=== PATIENT | female | born 1940 | race Caucasian/White ===

== ENCOUNTER 2017-03-30 10:58 | Outpatient (RCR) ==
--- NOTE | 2017-03-31 10:37 | RS.OPPTEV2 ---
Date of Note: 03/30/17 Visit #: 1 Date of Evaluation: 03/30/17 Payer Source: MEDICARE Date of Onset/Injury/Change in Status: 09/11/14 Surgery Performed?: No Treatment Diagnosis: Low Back pain History of Condition/Mechanism of Injury:: States she had back pain, but was also found to have a kidney stone. She was hospitalized the end of February and has been off of work since that time. Prior Level of Function.....Patient was independent with: ADL's, Self Care, Work /Vocation, Caregiving, Ambulation/Mobility, Community Integration/Access Current Subjective/complaints:: Patient reports she has not had pain in her back for the last 4-5 days. States she has not been working and will be off until the 15 of April. Reports no pain during the evaluation today. Medical History Medical History: Hypertension Smoking Status: Never smoker Hx Home Medications: does not have list with her. States she has not taken pain medication in 4-5 days. Pain Assessment - Pain Description Pain Location: Pain was in her low back Current Pain Intensity: 0/10 Worst Pain Intensity: 0/10 Functional Outcome Measure Oswestry LBP: 12 - G Codes & Severity Modifier G Codes & Modifier: Mobility current CI. Mobility goal CI. Mobility D/C CI Source of G Code score: Oswestry LBP scale - ROM Lumbar Flexion: Hand reach to patellae Sidebending to Left: Reach to Lateral Joint Line Sidebending to Right: Reach to Lateral Joint Line Comments: Reports no pain with lumbar or LE AROM. - Strength Comments: 5/5 throughout bilateral LE's. - Special Tests RASTA Test: Negative Left, Negative Right SLR Test: Negative Left, Negative Right Seated Dural Stretch Test: Negative Left, Negative Right SI Joint Compression: Negative SI Joint Distraction: Negative Palpation Comments:: Patient reports no tenderness throughout the lumbar spine, SI joints , or superior gluteal muscles. Demonstrates no significant increased muscle tone along the lumbar paraspinals. Sensation - Sensation Right Lower Extremity: Intact/Normal Left Lower Extremity: Intact/Normal Additional Comments: Additional Comments: Bilateral SLR to 35-40 degrees. Interventions - Exercise/Activities/Manual Therapy Exercises/Activities: Pt instructed in supine HS stretching for home. Manual Therapy: NA HOME EXERCISE PROGRAM: HS stretch - Charges Total Direct Minutes: 40 mins Total Treatment Time: 40 mins Procedures billed for this date of service:: [place] LOW Assessment Assessment: Patient presents to therapy with a diagnosis of chronic low back pain. She reports no pain or need for pain medication for the last 4-5 days. She had no pain during the evaluation today. Unable to reproduce pain with Special Tests. She does demonstrate tight hamstrings and she was given stretches to address this on her own. I informed her that we could keep her chart open until the end of the month, in case pain returned and she would need to come in for therapy. At this time, however, she demonstrates no need for therapy due to no pain or problems found during the evaluation. Plan - Treatment to be Provided Procedures: Patient Education Modalities: No Modalities - Treatment Plan Frequency: one time treatment Duration: One time treatment ORDER # VISITS AND/OR THROUGH DATE: 03/30/17 - Treatment Code (1) Low back pain Qualifiers: Chronicity: chronic Back pain laterality: unspecified Sciatica presence: unspecified whether sciatica present Qualified Description: Chronic low back pain, unspecified back pain laterality, with sciatica presence unspecified Qualifier Code(s): (M54.5) Low back pain, (G89.29) Other chronic pain
== END 2017-04-14 ==
PROVIDERS: ATTEND Family Medicine
DX: M54.5 Low back pain (principal); G89.29 Other chronic pain

== ENCOUNTER 2017-07-21 10:08 | Outpatient (CLI) ==
--- NOTE | 2017-07-21 11:31 | DI ---
Exam: Two x-rays of the chest. Comparison: None available. Reason for exam: Cough. FINDINGS: No pneumothorax or focal consolidation. There is patchy airspace opacities in the left l miguelina base. The cardiac silhouette is not enlarged. The imaged osseous structures appear grossly unr emarkable without acute fracture. Impression: Patchy airspace opacities in left lung base likely atelectasis or early pneumonia.
== END 2017-07-21 10:09 | disposition home or self-care (01) ==
LOC: RAD 10:08
PROVIDERS: ATTEND Family Medicine
DX: R05 Cough (principal)

== ENCOUNTER 2017-07-25 14:17 | Outpatient (CLI) ==
--- NOTE | 2017-07-25 14:47 | DI ---
EXAM: PA and lateral views of the chest HISTORY: Coughing and pneumonia COMPARISON: Chest Xray from 07/21/2017 FINDINGS: There is some improvement in airspace opacities in left lung base compared to before. Th ere is no lobar consolidation or failure or large effusion. Cardiac and mediastinal silhouettes are unremarkable. No acute osseous or soft tissue abnormalities. There has been prior cholecystectomy. IMPRESSION: Improving airspace densities in left base.
== END 2017-07-25 14:18 | disposition home or self-care (01) ==
LOC: LAB 14:17
PROVIDERS: ATTEND Family Medicine
DX: R05 Cough (principal)

== ENCOUNTER 2017-09-13 14:44 | Outpatient (CLI) ==
--- NOTE | 2017-09-13 15:30 | DI ---
EXAM: Chest two view, frontal and lateral views. HISTORY: Dyspnea. COMPARISON: 07/25/2017. FINDINGS: The heart size is normal. There is no pulmonary vascular congestion. The lungs are clear . No pleural effusion or pneumothorax is seen. No acute osseous abnormality identified. Clips seen in the upper abdomen. Since the prior study, there has been no significant interval change. IMPRESSION: No acute cardiopulmonary process.
== END 2017-09-13 14:45 | disposition home or self-care (01) ==
LOC: RAD 14:44
PROVIDERS: ATTEND Nurse Practitioner Family
DX: J98.8 Other specified respiratory disorders (principal); R06.00 Dyspnea, unspecified

== ENCOUNTER 2017-11-12 15:03 | Emergency (ER) ==
[2017-11-12 15:19] VITALS: BP 133/68; TEMP 97; BMI 29.9
[2017-11-12] MEDS ORDERED: PREDNISONE PO STA (15:31)
--- NOTE | 2017-11-12 16:21 | DI ---
EXAM: Chest two views HISTORY: Cough COMPARISON: 09/13/2017 TECHNIQUE: Two views of the chest were performed FINDINGS: The lungs are clear. There is no pleural effusion or pneumothorax. The heart is borderli ne enlarged in size. The mediastinal contour is normal, noting atherosclerosis. There are no acute abnormalities of the bones. IMPRESSION: No acute cardiopulmonary process.
--- NOTE | 2017-11-12 17:08 | ED.PDOC ---
General ED Provider: Dr. PUJA CHANDLER Chief Complaint: Respiratory Complaint Stated Complaint: cough, flu symptoms Time Seen by Physician: 15:10 (flu like symp) Mode of Arrival: Walk-In Information Source: Patient Exam Limitations: No limitations Primary Care Provider: JULEE AMIN Nursing and Triage Documentation Reviewed and Agree: Yes Reviewed sepsis parameters & appropriate labs ordered?: Yes System Inflammatory Response Syndrome: Not Applicable Sepsis Protocol: For patient's 13 years and over: Temp is 96.8 and below OR 101 and greater Pulse >90 BPM Resp >20/minute Acutely Altered Mental Status Are patient's symptoms suggestive of a new infection, such as: -Pneumonia -Skin, Soft Tissue -Endocarditis -UTI -Bone, Joint Infection -Implantable Device -Acute Abdominal Infection -Wound Infection -Meningitis -Blood Stream Catheter Infection -Unknown Respiratory Complaint Exam - Respiratory Complaint/Exam Onset/Duration: 3 days Symptoms Are: Still present Timing: Intermittent Initial Severity: Moderate Current Severity: Moderate Location: Throat, Chest Character: Reports: Non-productive cough Aggravating: Reports: None Alleviating: Reports: None Associated Signs and Symptoms: Reports: URI, Nasal congestion. Denies: Rapid breathing, Dyspnea, Fever, Chills, Chest pain, Pleuritic chest pain, Wheezing, Hemoptysis, Dizziness, Calf pain, Calf swelling, Edema, Hoarseness, Sinus discomfort, Vomiting, Sore throat, Weight loss, Decreased oral intake, Increased thirst, Increased appetite, Increased urination History of Healthcare-Acquired Pneumonia: No Related Surgical History: Reports: None Pulmonary Embolism Risk Factors: None Cardiac Risk Factors: Reports: None Pseudomonas Risk Factors: Reports: None Tuberculosis Risk Factors: Reports: None Status Asthmaticus Risk Factors: Reports: None Home Oxygen Use: No Recent Stress Test: No Recent Echo/LV Function: No Current Antibiotic Use: No Current Asthma Medication Use: No Inadequate Respiratory Effort: Yes Dysphagia Present: No Stridor Present: No JVD Present: No Accessory Muscle Use: No Retractions: Not Present Diminished Breath Sounds: No Sinus Tenderness: None Grunting Respirations: No Kussmaul Respirations: No Differential Diagnoses: Pneumonia, Bronchitis Review of Systems - Review Of Systems Constitutional: Reports: No symptoms Eyes: Reports: No symptoms Ears, Nose, Mouth, Throat: Reports: No symptoms Respiratory: Reports: Cough Cardiac: Reports: No symptoms GI: Reports: No symptoms : Reports: No symptoms Musculoskeletal: Reports: No symptoms Skin: Reports: No symptoms Neurological: Reports: No symptoms Endocrine: Reports: No symptoms Hematologic/Lymphatic: Reports: No symptoms All Other Systems: Reviewed and Negative Past Medical History - Past Medical History Previously Healthy: Yes Endocrine: Reports: None Cardiovascular: Reports: None Respiratory: Reports: None Hematological: Reports: None Gastrointestinal: Reports: None Genitourinary: Reports: None Neuro/Psych: Reports: None Musculoskeletal: Reports: None Cancer: Reports: None Last Menstrual Period: unknown - Surgical History General Surgical History: Reports: None - Family History Family History: Reports: None - Social History Smoking Status: Never smoker Hx Substance Use: No Alcohol Screening: None Physical Exam - Physical Exam Appearance: Ill-appearing Ill-appearing: Mild Pain Distress: Mild Eyes: KRISSY, EOMI, Conjunctiva clear ENT: Erythema Respiratory: Rhonchi Cardiovascular: RRR, Pulses normal, No rub, No murmur GI/: Soft, Nontender, No masses, Bowel sounds normal, No Organomegaly Musculoskeletal: Normal strength, ROM intact, No edema, No calf tenderness Skin: Warm, Dry, Normal color Neurological: Sensation intact, Motor intact, Reflexes intact, Cranial nerves intact, Alert, Oriented Psychiatric: Affect appropriate, Mood appropriate Critical Care Note - Critical Care Note Total Time (mins): 0 Course - Course Hematology/Chemistry: 11/12/17 15:49 Orders, Labs, Meds: Lab Review 11/12/17 11/12/17 15:49 16:20 WBC 4.68 RBC 4.54 Hgb 12.1 Hct 37.5 MCV 82.6 MCH 26.7 L MCHC 32.3 RDW Coeff of Laila 18.0 H Plt Count 284 Immature Gran % (Auto) 0.0 Neut % (Auto) 54.9 Lymph % (Auto) 34.0 [place] % (Auto) 9.6 Eos % (Auto) 0.9 Baso % (Auto) 0.6 Immature Gran # (Auto) 0.0 Neut # 2.6 Lymph # 1.6 [place] # 0.5 Eos # 0.0 Baso # 0.0 Influenza A (Rapid) Positive by naat H Influenza B (Rapid) Negative by naat Orders Category Date Time Status CBC W/ AUTO DIFF Stat LAB 11/12/17 15:49 Completed MOLECULAR FLU A/B Stat LAB 11/12/17 16:20 Completed MOLECULAR GROUP A STREP Stat LAB 11/12/17 16:20 Completed Prednisone MEDS 11/12/17 15:31 Discontinued 40 mg PO ONCE STA CHEST, 2 VIEWS PA & LAT Stat RADS 11/12/17 15:30 Completed Medications Discontinued Medications Generic Name Dose Route Start Last Admin Trade Name Beena PRN Reason Stop Dose Admin Prednisone 40 mg 11/12/17 15:31 11/12/17 16:00 Prednisone PO 11/12/17 15:32 40 mg ONCE STA Administration Vital Signs: Temp Pulse Resp BP Pulse Ox 11/12/17 15:06 97.0 F L 72 20 133/68 98 Departure - Departure Time of Disposition: 17:07 Disposition: HOME SELF-CARE Discharge Problem: Influenza A Instructions: Influenza (ED) Condition: Good Pt referred to PMD for follow-up: Yes Additional Instructions: Please call your Family Physician as soon as possible to schedule a follow-up appointment. Prescriptions: Azithromycin [Zithromax] 250 mg PO DIRECTED #6 tablet Allergies/Adverse Reactions: Allergies No Known Allergies Allergy (Unverified 11/12/17 15:19) Home Medications: Ambulatory Orders Azithromycin [Zithromax] 250 mg PO DIRECTED #6 tablet 11/12/17
== END 2017-11-12 17:48 | disposition home or self-care (01) ==
LOC: ED 15:03
DX: J09.X2 Influenza due to identified novel influenza A virus with other respiratory manifestations (principal)
CPT/HCPCS: 36415; 85025; 87502; 87651; 99283

== ENCOUNTER 2017-12-27 04:16 | Emergency (ER) ==
[2017-12-27 04:34] VITALS: BP 206/76; TEMP 97.6; BMI 30.1
--- NOTE | 2017-12-27 05:51 | ED.PDOC ---
General ED Provider: Dr. JULEE AMIN-ER Chief Complaint: Abdominal Pain Stated Complaint: had upper abd pain but now its gone Time Seen by Physician: 04:30 Mode of Arrival: Walk-In Information Source: Patient Exam Limitations: No limitations Primary Care Provider: JULEE AMIN Nursing and Triage Documentation Reviewed and Agree: Yes Reviewed sepsis parameters & appropriate labs ordered?: Yes System Inflammatory Response Syndrome: Not Applicable Sepsis Protocol: For patient's 13 years and over: Temp is 96.8 and below OR 101 and greater Pulse >90 BPM Resp >20/minute Acutely Altered Mental Status Are patient's symptoms suggestive of a new infection, such as: -Pneumonia -Skin, Soft Tissue -Endocarditis -UTI -Bone, Joint Infection -Implantable Device -Acute Abdominal Infection -Wound Infection -Meningitis -Blood Stream Catheter Infection -Unknown GI Complaint Exam - Abdominal Pain Complaint/Exam Onset: Sudden Duration: 3 hrs Symptoms Are: Resolved Timing: Constant Initial Severity: Mild Current Severity: Moderate Location of Pain: Diffuse Character: Reports: Dull, Aching Aggravating: Reports: None Alleviating: Reports: Spontaneous resolution Associated Signs and Symptoms: Denies: Diaphoresis, Fever, Cough, Chest pain, Dizziness, Back pain, Constipation, Blood in stool, Dysuria, Urinary frequency, Decreased urine output, Decreased appetite, Vaginal bleeding, Vaginal discharge , Nausea, Vomiting, Diarrhea, Sore throat, Decreased activity Differential Diagnoses: Bowel Obstruction, Constipation, Pancreatitis, Ureteral Stone, UTI Quality Indicator For Non-Traumatic Chest Pain/Syncope: EKG Performed Review of Systems - Review Of Systems Constitutional: Reports: No symptoms Eyes: Reports: No symptoms Ears, Nose, Mouth, Throat: Reports: No symptoms Respiratory: Reports: No symptoms Cardiac: Reports: No symptoms GI: Reports: Abdominal pain : Reports: No symptoms Musculoskeletal: Reports: No symptoms Skin: Reports: No symptoms Neurological: Reports: No symptoms Endocrine: Reports: No symptoms Hematologic/Lymphatic: Reports: No symptoms All Other Systems: Reviewed and Negative Past Medical History - Past Medical History Previously Healthy: Yes Endocrine: Reports: None Cardiovascular: Reports: None Respiratory: Reports: None Hematological: Reports: None Gastrointestinal: Reports: None Genitourinary: Reports: None Neuro/Psych: Reports: None Musculoskeletal: Reports: None Cancer: Reports: None Last Menstrual Period: UNKNOWN - Surgical History General Surgical History: Reports: None - Family History Family History: Reports: None - Social History Smoking Status: Never smoker Hx Substance Use: No Alcohol Screening: None - Immunizations Tetanus Shot up to Date: No Physical Exam - Physical Exam Appearance: Well-appearing, No pain distress, Well-nourished Pain Distress: Moderate Eyes: KRISSY, EOMI, Conjunctiva clear ENT: Ears normal, Nose normal, Oropharynx normal Neck: Supple Respiratory: Airway patent, Breath sounds clear, Breath sounds equal, Respirations nonlabored Cardiovascular: RRR, Pulses normal, No rub, No murmur GI/: Soft, Nontender, No masses, Bowel sounds normal, No Organomegaly Musculoskeletal: Normal strength Skin: Warm, Dry, Normal color Neurological: Sensation intact, Motor intact, Reflexes intact, Cranial nerves intact, Alert, Oriented Psychiatric: Affect appropriate, Mood appropriate Interpretation - Radiology Interpretation Radiology Interpretation By: Radiologist Radiology Results: Negative Exam Interpreted: CT Scan Re-Evaluation - Re-Evaluation Time of Re-Evaluation: 06:12 Status: Improved Vital Signs Stable: Yes Pain Level: 0 Appearance: NAD Lungs: Clear Skin: Warm and Dry Neuro: Alert and Oriented X3 CV: RRR Critical Care Note - Critical Care Note Total Time (mins): 0 Course - Course Hematology/Chemistry: 12/27/17 05:00 12/27/17 05:00 Orders, Labs, Meds: Lab Review 12/27/17 12/27/17 12/27/17 05:00 05:00 05:20 WBC 6.64 RBC 4.11 L Hgb 11.7 L Hct 35.3 L MCV 85.9 MCH 28.5 MCHC 33.1 RDW Coeff of Laila 15.8 H Plt Count 269 Immature Gran % (Auto) 0.2 Neut % (Auto) 67.1 Lymph % (Auto) 19.6 Daniels % (Auto) 9.6 Eos % (Auto) 2.6 Baso % (Auto) 0.9 Immature Gran # (Auto) 0.0 Neut # 4.5 Lymph # 1.3 Daniels # 0.6 Eos # 0.2 Baso # 0.1 ESR 8 Sodium 139 Potassium 3.5 Chloride 108 H Carbon Dioxide 24 Anion Gap 10.5 BUN 16 Creatinine 0.70 Estimated GFR (MDRD) 81.00 BUN/Creatinine Ratio 22.85 Glucose 134 H Calcium 8.5 Total Bilirubin 0.3 AST 19 ALT 15 Alkaline Phosphatase 112 Total Creatine Kinase 68 Troponin I 0.0120 Total Protein 6.1 Albumin 3.2 L Globulin 2.9 Albumin/Globulin Ratio 1.10 Amylase 32 Lipase 17 Urine Color Yellow Urine Clarity Clear Urine pH 6.0 Ur Specific Rankin 1.015 Urine Protein Negative Urine Glucose (UA) Negative Urine Ketones Trace Urine Blood Negative Urine Nitrite Negative Urine Bilirubin Negative Urine Urobilinogen 0.2 Ur Leukocyte Esterase Trace Urine Microscopic WBC 0-2 Ur Squamous Epith Cells 2-5 Urine Bacteria Trace Orders Category Date Time Status EKG-(ED ONLY) Stat CARDIO 12/27/17 04:52 Completed AMYLASE Stat LAB 12/27/17 05:00 Completed CBC W/ AUTO DIFF Stat LAB 12/27/17 05:00 Completed COMPREHENSIVE METABOLIC PANEL Stat LAB 12/27/17 05:00 Completed CREATINE KINASE Stat LAB 12/27/17 05:00 Completed ESR Stat LAB 12/27/17 05:00 Completed LIPASE Stat LAB 12/27/17 05:00 Completed TROPONIN I Stat LAB 12/27/17 05:00 Completed URINALYSIS C & S IF INDICATED Stat LAB 12/27/17 05:[address] ABDOMEN/PELVIS WO CONTRAST Stat RADS 12/27/17 04:52 Completed Vital Signs: Temp Pulse Resp BP Pulse Ox 12/27/17 04:18 97.6 F 68 20 206/76 H 94 L Departure - Departure Time of Disposition: 06:13 Disposition: HOME SELF-CARE Discharge Problem: Abdominal pain Instructions: Acute Abdominal Pain (ED) Condition: Good Pt referred to PMD for follow-up: Yes IPMP verified?: No Additional Instructions: see me in one week---contact [facility] for follow up on lung nodule Allergies/Adverse Reactions: Allergies No Known Allergies Allergy (Verified 12/27/17 04:29) Home Medications: Ambulatory Orders Aspirin [Aspirin EC] 81 mg PO DAILY 12/27/17 Citalopram Hydrobromide [Celexa] 20 mg PO DAILY 12/27/17 Clonidine HCl 0.2 mg PO BID 12/27/17 Levothyroxine Sodium 100 mcg PO DAILY 12/27/17 Oxybutynin Chloride [Ditropan] 5 mg PO DAILY 12/27/17 Pantoprazole Sodium [Protonix] 40 mg PO DAILY 12/27/17 Disposition Discussed With: Patient, Family
--- NOTE | 2017-12-27 06:04 | CT ---
EXAM: CT scan abdomen pelvis without contrast HISTORY: Abdominal pain COMPARISON: None. FINDINGS: Contiguous axial images obtained through the abdomen pelvis without contrast utilizing 3-m m collimation. Sagittal and coronal reconstructions were imaged and reviewed.. Heart is mildly enla rged without pericardial effusion. There is a small hiatal hernia. There is a 11.3 mm nodule at the right lung base which merits follow-up. There has been prior cholecystectomy. The liver pancreas s pleen and adrenal glands have normal unenhanced CT appearance. Atherosclerotic changes are seen invol ving the aorta without aneurysm formation.. There is a 2 mm nonobstructive calculus within the lower pole right kidney. The left kidney was not identified. There is diverticulosis without diverticuli tis. Small stool retention in the rectosigmoid colon. 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 The appendix was not visualized. There is umbilical hernia containing only f at. There is no free fluid or inflammatory changes.. There is a left inguinal hernia which contains soft tissue attenuation. Correlate with clinical exam. Degenerative changes are seen within the lo wer lumbar spine. The SI joints and hips. IMPRESSION: No acute intra-abdominal findings. Right basilar nodule which merits follow-up. Nonobstructive right-side nephrolithiasis. The left kidney was not identified. ASVD without aneurysm. Enlarged myomatous uterus
== END 2017-12-27 06:40 | disposition home or self-care (01) ==
LOC: ED 04:16
DX: R10.84 Generalized abdominal pain (principal); R91.1 Solitary pulmonary nodule; Z79.899 Other long term (current) drug therapy
CPT/HCPCS: 36415; 80053; 81001; 82150; 82550; 83690; 84484; 85025; 85651; 93005; 93010; 99283

== ENCOUNTER 2018-03-26 12:59 | Emergency (ER) | payer OTHER ==
[2018-03-26 13:08] VITALS: BP 112/84; TEMP 98.1; BMI 30.9
[2018-03-26] MEDS ORDERED: LIDOCAINE HCL 1% SDV SUBCUT STA (13:16)
[2018-03-26] MEDS ORDERED: TENIVAC IM ONE (13:17)
--- NOTE | 2018-03-26 13:50 | ED.PDOC ---
General ED Provider: Dr. JULEE AMIN-ER Chief Complaint: Fall Stated Complaint: i fell at work Time Seen by Physician: 13:05 Mode of Arrival: Walk-In Information Source: Patient Exam Limitations: No limitations Primary Care Provider: JULEE AMIN Nursing and Triage Documentation Reviewed and Agree: Yes Reviewed sepsis parameters & appropriate labs ordered?: Yes System Inflammatory Response Syndrome: Not Applicable Sepsis Protocol: For patient's 13 years and over: Temp is 96.8 and below OR 101 and greater Pulse >90 BPM Resp >20/minute Acutely Altered Mental Status Are patient's symptoms suggestive of a new infection, such as: -Pneumonia -Skin, Soft Tissue -Endocarditis -UTI -Bone, Joint Infection -Implantable Device -Acute Abdominal Infection -Wound Infection -Meningitis -Blood Stream Catheter Infection -Unknown Trauma/Injury Complaint Exam - Facial Injury Complaint/Exam Location of Pain: Reports: Left, Forehead Mechanism of Injury: Reports: Trauma Onset/Duration: one hour Symptoms Are: Still present Onset of Pain: Reports: Immediate Initial Severity: Mild Current Severity: Mild Location: Reports: Discrete Character: Reports: Dull Alleviating: Reports: None Aggravating: Reports: None Associated Signs and Symptoms: Denies: Swelling, Redness, Bruising, Numbness, Tingling, Fever, Polymyalgia, Weight loss, Visual defects, Tinnitus, Headache, Loss of consciousness Related History: Reports: Occupational injury Related Surgical History: Reports: None Facial Findings: Present: Normal findings Differential Diagnoses: Laceration Review of Systems - Review Of Systems Constitutional: Reports: No symptoms Eyes: Reports: No symptoms Ears, Nose, Mouth, Throat: Reports: No symptoms Respiratory: Reports: No symptoms Cardiac: Reports: No symptoms GI: Reports: No symptoms : Reports: No symptoms Musculoskeletal: Reports: No symptoms Skin: Reports: No symptoms Neurological: Reports: No symptoms Endocrine: Reports: No symptoms Hematologic/Lymphatic: Reports: No symptoms All Other Systems: Reviewed and Negative Past Medical History - Past Medical History Previously Healthy: Yes Endocrine: Reports: None Cardiovascular: Reports: None Respiratory: Reports: None Hematological: Reports: None Gastrointestinal: Reports: None Genitourinary: Reports: None Neuro/Psych: Reports: None Musculoskeletal: Reports: None Cancer: Reports: None Last Menstrual Period: n/a - Surgical History General Surgical History: Reports: None - Family History Family History: Reports: None - Social History Smoking Status: Never smoker Hx Substance Use: No Alcohol Screening: None Physical Exam - Physical Exam Appearance: Well-appearing, No pain distress, Well-nourished Pain Distress: Mild Eyes: KRISSY, EOMI, Conjunctiva clear ENT: Ears normal, Nose normal, Oropharynx normal Neck: Supple Respiratory: Airway patent, Breath sounds clear, Breath sounds equal, Respirations nonlabored Cardiovascular: RRR, Pulses normal, No rub, No murmur GI/: Soft, Nontender, No masses, Bowel sounds normal, No Organomegaly Musculoskeletal: Normal strength, ROM intact, No edema, No calf tenderness Skin: Warm, Dry, Normal color Neurological: Sensation intact, Motor intact, Reflexes intact, Cranial nerves intact, Alert, Oriented Psychiatric: Affect appropriate, Mood appropriate Interpretation - Radiology Interpretation Radiology Interpretation By: Radiologist Radiology Results: Negative Exam Interpreted: CT Scan Procedures - Laceration/Wound Repair No standard instances Wound Description: Irregular Wound Length (cm): 1.5cm left eyebrow Wound Irrigated: Yes Wound Prep: Hibiclens Anesthesia: Lidocaine Wound Repaired With: Sutures Suture Size and Type: 4.0 prolene Number of Sutures: 3 Layer Closure?: No Sterile Dressing Applied?: Yes Splint Applied?: No Sling Applied?: No Critical Care Note - Critical Care Note Total Time (mins): 0 Course - Course Orders, Labs, Meds: Lab Review 03/26/18 13:09 Urine Opiates Screen Negative Ur Oxycodone Screen Negative Urine Methadone Screen Negative Ur Propoxyphene Screen Negative Ur Barbiturates Screen Negative U Tricyclic Antidepress Negative Ur Phencyclidine Scrn Negative Ur Amphetamine Screen Negative U Methamphetamines Scrn Negative U Benzodiazepines Scrn Negative Urine Cocaine Screen Negative U Cannabinoids Screen Negative Orders Category Date Time Status URINE DRUG SCREEN (RAPID FOR ED) [DRUG SCREEN, URINE, LAB 03/26/18 13:09 Completed RAPID] Stat Lidocaine HCl/Pf [Lidocaine HCl 1% Sdv] MEDS 03/26/18 13:16 Discontinued 5 ml SUBCUT ONCE STA Tetanus and Diphtheria Tox/Pf [Tenivac] MEDS 03/26/18 13:17 Discontinued 0.5 ml IM .ONCE ONE CT CERVICAL SPINE W/O CONTRAST Stat RADS 03/26/18 13:[address] HEAD W/O CONTRAST Stat RADS 03/26/18 13:17 Completed ELBOW, LEFT MIN 3 VIEWS Stat RADS 03/26/18 13:18 Taken WRIST, LEFT 3 VIEWS Stat RADS 03/26/18 13:18 Taken Medications Discontinued Medications Generic Name Dose Route Start Last Admin Trade Name Beena PRN Reason Stop Dose Admin Lidocaine HCl 5 ml 03/26/18 13:16 03/26/18 13:50 Lidocaine Hcl 1% Sdv SUBCUT 03/26/18 13:17 5 ml ONCE STA Administration Tetanus/Diphtheria Toxoids Adsorbed 0.5 ml 03/26/18 13:17 03/26/18 13:24 Tenivac IM 03/26/18 13:18 0.5 ml .ONCE ONE Administration Vital Signs: Temp Pulse Resp BP Pulse Ox 03/26/18 13:02 98.1 F 70 16 112/84 95 Departure - Departure Time of Disposition: 13:59 Disposition: HOME SELF-CARE Discharge Problem: Head injury Qualifiers: Encounter type: initial encounter Qualified Code(s): S09.90XA - Unspecified injury of head, initial encounter Instructions: Head Injury (ED), Laceration (ED), Care For Your Stitches (ED) Condition: Good Pt referred to PMD for follow-up: Yes IPMP verified?: No Additional Instructions: keep clear and dry--sutures out in my office next wednesday(call for appt) Allergies/Adverse Reactions: Allergies No Known Allergies Allergy (Verified 03/26/18 13:07) Home Medications: Ambulatory Orders Aspirin [Aspirin EC] 81 mg PO DAILY 12/27/17 Citalopram Hydrobromide [Celexa] 20 mg PO DAILY 12/27/17 Clonidine HCl 0.2 mg PO TID 12/27/17 Levothyroxine Sodium 100 mcg PO DAILY 12/27/17 Oxybutynin Chloride [Ditropan] 10 mg PO BID 12/27/17 Pantoprazole Sodium [Protonix] 40 mg PO DAILY 12/27/17 Ascorbic Acid [Vitamin C] 1,000 mg PO DAILY 03/26/18 Atorvastatin Calcium 40 mg PO BEDTIME 03/26/18 Calcium Carbonate/Vitamin D3 [Caltrate 600 + D Tablet] 1 each PO DAILY 03/26/18 Cefdinir 300 mg PO DIRECTED 03/26/18 Cranberry Conc/C/Bacill Coag [Cranberry Tablet] 1 each PO DAILY 03/26/18 Furosemide 40 mg PO DAILY 03/26/18 Disposition Discussed With: Patient
--- NOTE | 2018-03-26 13:53 | CT ---
EXAM: CT head without contrast HISTORY: Fall COMPARISON: None TECHNIQUE: Serial axial images of the brain were obtained from the skull base to the vertex without IV contrast. FINDINGS: The ventricles, cisterns and sulci demonstrate mild generalized volume loss.. The iraheta-wh ite matter junction is maintained. There is mild low attenuation in the periventricular white matter with benign appearing calcifications.No midline shift or mass is identified. There is no abnormal i ntra or extra-axial fluid collection. The paranasal sinuses and mastoid air cells are clear. The os seous calvarium is intact. IMPRESSION: 1. No acute intracranial abnormality or hemorrhage. 2. Scattered generalized volume loss and microangiopathy.
--- NOTE | 2018-03-26 13:55 | CT ---
EXAM: CT cervical spine. HISTORY: Fall, cervical pain. TECHNIQUE: CT cervical spine without contrast. Detailed axial sections. Coronal and sagittal re-fo rmations. COMPARISON: None FINDINGS: Bone density appears decreased. No acute fracture or loss of vertebral body height. Subtle reversal of lordosis at the lower level of the spine. There is no spondylolisthesis. Facet joints are cover ed. Lateral masses of C1 and C2 are normally aligned and the odontoid process is intact. Diffuse d egenerative disc and facet disease leads to multilevel mild central canal stenosis. No paraspinal fl uid collection is identified. Incidental findings include prominent nodular appearing thyroid and al so atherosclerotic disease. IMPRESSION: No acute fracture or subluxation.
--- NOTE | 2018-03-26 13:59 | DI ---
EXAM: Three views of the left wrist HISTORY: Fall. COMPARISON: None FINDINGS: There is narrowing of the radiocarpal joint. There is mild degenerative change of the firs t CMC joint. Carpal bones are normal. Soft tissues demonstrate mild soft tissue swelling. There is no displaced fracture or dislocation. IMPRESSION: Mild degenerative change of the radiocarpal joint with no displaced fracture.
--- NOTE | 2018-03-26 14:07 | DI ---
EXAM: Left elbow three views HISTORY: Fall, elbow pain. FINDINGS: Trabecular markings are accentuated consistent with diffuse demineralization. Subtle arthro misbah. No displaced fracture or joint dislocation. There is no visible joint effusion. No soft tis shawna hematoma is seen. IMPRESSION: No fracture or dislocation.
== END 2018-03-26 14:21 | disposition home or self-care (01) ==
LOC: ED 12:59
DX: S01.81XA Laceration without foreign body of other part of head, initial encounter (principal); W19.XXXA Unspecified fall, initial encounter; Y92.129 Unspecified place in nursing home as the place of occurrence of the external cause; Y99.0 Civilian activity done for income or pay
CPT/HCPCS: 80306; 90471; 90714; 99283